=== PATIENT | female | born 1950 | race Caucasian/White ===

== ENCOUNTER 2019-12-31 20:09 | Emergency (ER) | payer MEDICARE ==
[~2019-12-31] VITALS: Ht 160 cm; Wt 102.1 kg
--- OUTSIDE RECORDS SUMMARY | 2019-12-31 20:11 | XMS REPORT ---
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 Allergies, Adverse Reactions, Alerts This patient has no known allergies or adverse reactions. Medications This patient has no known medications. Results Test Description Test Time Test Comments Text Results Atomic Results Result Comments SCR MAMM BILATERAL [place] CAD DIGITAL 2018-12-26 12:22:22 - SCR MAMM BILATERAL [place] CAD DIGITALBILATERAL DIGITAL SCREENING MAMMOGRAM 3D/2D WITH CAD: 12/26/2018CLINICAL: Asymptomatic. Digital breast tomosynthesis was performed in addition to routine CC and MLO views. Current mammographic images were evaluated by either a Embrane M-Vu or a [employer] ImageChecker CAD (computer aided detection system). Comparison is made to exams dated 03/22/2014 mammogram, 2006 mammogram, and 03/07/2006 mammogram - [facility]-. There are scattered fibroglandular tissues in both breasts. There are benign calcifications in the right breast. No suspicious mass, architectural distortion, malignant type calcification, or lymph node abnormality detected. Breast architecture is stable compared to prior exams.IMPRESSION: BENIGNThere is no mammographic evidence of malignancy. Resume annual screening mammography in one year. Maximino roberson/guy:12/26/2018 12:22:22 Research Scientist: Lashay OMALLEY, [facility]-FWletter sent: BIRADS 1-2 Normal Mammogram BI-RADS: 2 Benign
[2019-12-31] MEDS ORDERED: ASPIRIN 81 MG CHEW TAB PO ONE (22:00)
[2019-12-31] MEDS ORDERED: MECLIZINE HCL 12.5 MG TAB PO ONE (22:00)
[2019-12-31] MEDS ORDERED: DIAZEPAM INJ 5 MG/ML 2 ML IV ONE (22:00)
[2019-12-31 22:09] LABS: BASOPHILS % 0.6 % (0.0-1.0); EOSINOPHILS % 0.6 % (0.0-6.0); HEMATOCRIT 40.8 % (34.2-44.1); HEMOGLOBIN 14.2 g/dL (12.0-16.0); LYMPHOCYTES # (AUTO) 1.4 (1.0-3.2); LYMPHOCYTES % 19.3 % (18.0-39.1); MEAN CORPUSCULAR HEMOGLOBIN 30.7 pg (28-32); MEAN CORPUSCULAR HGB CONC 34.8 g/dL (31-35); MEAN CORPUSCULAR VOLUME 88.1 fL (81-99); MONOCYTES # (AUTO) 0.4 (0.2-0.8); MONOCYTES % 5.8 % (4.4-11.3); NEUTROPHILS # (AUTO) 5.3 (2.1-6.9); NEUTROPHILS % 73.3 % (38.7-80.0); PLATELET COUNT 160 x10e3/uL (140-360); RED BLOOD COUNT 4.63 x10e6/uL (3.6-5.1); RED CELL DISTRIBUTION WIDTH 12.4 % (11.7-14.4)
[2019-12-31 22:16] LABS: BILIRUBIN,URINE NEGATIVE (NEGATIVE); CLARITY,URINE SL CLOUDY (CLEAR); COLOR,URINE YELLOW (YELLOW); KETONES,URINE 3+ (NEGATIVE); LEUKOCYTE ESTERASE ,URINE NEGATIVE (NEGATIVE); NITRITE,URINE NEGATIVE (NEGATIVE); PROTEIN,URINE DIPSTICK NEGATIVE (NEGATIVE); URINE UROBILINOGEN 0.2 mg/dL (0.2 - 1)
[2019-12-31 22:24] LABS: ALANINE AMINOTRANSFERASE 36 IU/L (0-55); ALBUMIN 4.1 g/dL (3.5-5.0); ALBUMIN/GLOBULIN RATIO 1.3 (0.8-2.0); ALKALINE PHOSPHATASE 63 IU/L (40-150); ANION GAP 12.5 mmol/L (8-16); BLOOD UREA NITROGEN 11 mg/dL (7-26); BUN/CREATININE RATIO 12 (6-25); CALCIUM 10.1 mg/dL (8.4-10.2); CARBON DIOXIDE 27 mmol/L (22-29); CHLORIDE 99 mmol/L (98-107); CREATINE KINASE 77 IU/L (29-168); CREATININE, SERUM 0.94 mg/dL (0.57-1.11); EST GLOMERULAR FILTRATION RATE 59 ML/MIN (60-); GLUCOSE 325 mg/dL (74-118); POTASSIUM 3.5 mmol/L (3.5-5.1); SODIUM 135 mmol/L (136-145)
[2019-12-31 22:29] LABS: AMORPHOUS SEDIMENT,URINE MODERATE (FEW); BACTERIA,URINE MODERATE /HPF; EPITHELIAL CELLS,URINE FEW /LPF; MUCUS,URINE MODERATE (RARE); WBC,URINE (MAN) 0-5 /HPF (0-5)
--- NOTE | 2020-01-01 00:27 | Diagnostic Imaging Report ---
History:Unsteady gait Comparison studies:None Technique: Axial images were obtained from the skull base to the vertex. Coronal and sagittal images reconstructed from the axial data. Intravenous contrast: None Dose modulation, iterative reconstruction, and/or weight based adjustment of the mA/kV was utilized to reduce the radiation dose to as low as reasonably achievable. Findings: Scalp/skull: No abnormalities. Extra-axial spaces: No masses. No fluid collections. Brain sulci: Age-appropriate. Ventricles: Age-appropriate. No hydrocephalus. Parenchyma: Few hypodensities in the supratentorial white matter are small vessel ischemic changes. No masses, hemorrhage, acute or chronic cortical vascular insults. Sellar/suprasellar region: No abnormalities. Craniocervical junction: Patent foramen magnum. No Chiari one malformation. Incidental findings: Atherosclerotic calcifications in the carotid siphons . Impression: No acute abnormalities. Chronic findings: 1. Mild supratentorial white matter small vessel ischemic changes. Signed by: DR Clyde Nieves M.D. on 01/01/2020 12:24 AM
[2020-01-01 01:36] VITALS: BP 143/62
[2020-01-01] MEDS ORDERED: MECLIZINE HCL 12.5 MG TAB PO ONE (02:30)
== END 2020-01-01 02:30 | disposition home or self-care (01) ==
LOC: ER 20:09
DX: R42 Dizziness and giddiness (principal); E11.65 Type 2 diabetes mellitus with hyperglycemia; I10 Essential (primary) hypertension; K21.9 Gastro-esophageal reflux disease without esophagitis; F32.9 Major depressive disorder, single episode, unspecified
CPT/HCPCS: 36415; 70450; 80053; 81001; 82550; 82553; 82948; 84484; 85025; 93005; 99284; J8597 ×2